=== PATIENT | male | born 1975 | race African-American/Black ===

== ENCOUNTER 2016-04-12 07:33 | Inpatient (IN) | payer BC ==
[~2016-04-12] VITALS: Ht 177.8 cm; Wt 94.5 kg
[~2016-04-12 07:33] MED LIST: ALPRAZOLAM2 MG PO; CIPRO500 MG PO; FLAGYL500 MG PO; FLEXERIL5 MG PO; LIDOCAINE700 MG TD; MOBIC7.5 MG PO; MORPHINE SULFAT30 M1 PO; NICOTINE PATCH1 EAC2 TD; PERCOCET 10/1 TABLET PO; PHARMACIST FAV1 EACH PO
[2016-04-12 09:06] LABS: BASOPHIL COUNT 0.1 K/uL (0-0.1); EOSINOPHIL (%) 9.7 % (0-5); EOSINOPHIL COUNT 0.5 K/uL (0-0.3); HEMATOCRIT 48.8 % (38.0-50.0); IMMATURE GRANULOCYTE (%) 0.2 % (0.0-0.7); IMMATURE GRANULOCYTE COUNT 0.1 K/uL; LYMPHOCYTE COUNT 1.6 K/uL (1.0-2.8); MCH 29.3 PG (29.0-34.0); MCHC 33.8 G/DL (30.0-36.0); MCV 86.5 FL (86-99); MEAN PLAT.VOLUME 8.3 uM^3 (9.0-12.4); MONOCYTE (%) 10.7 % (3-12); MONOCYTE COUNT 0.5 K/uL (0-0.8); NEUTROPHIL COUNT 2.2 K/uL (1.8-6.4); PLATELET COUNT 188 K/uL (156-360); RBC DIS.WIDTH-CV 12.8 % (11.8-14.6); RBC DIS.WIDTH-SD 40.4 % (39-53); RED BLOOD COUNT 5.64 M/uL (4.00-5.50); WHITE BLOOD COUNT 4.9 K/uL (4.1-10.2)
[2016-04-12 09:18] LABS: CHLORIDE 105 mEq/L (99-109); POTASSIUM 4.3 mEq/L (3.7-5.4); SODIUM 140 mEq/L (136-147)
[2016-04-12 09:19] LABS: GLUCOSE 94 mg/dL (70-99)
[2016-04-12 09:21] LABS: ANION GAP 7 MEQ/L (2-14)
[2016-04-12 09:23] LABS: GFR ESTIMATE (CALCULATED) > 59 mL/min/
[2016-04-12 09:25] LABS: UREA NITROGEN (BUN) 16 mg/dL (9-23)
[2016-04-12] MEDS ORDERED: ATENOLOL25 MG PO (15:44)
[2016-04-12] MEDS ORDERED: CIALIS20 MG PO (15:44)
[2016-04-12] MEDS ORDERED: OXYCODONE HCL5 MG PO (15:44)
[2016-04-12] MEDS ORDERED: NEXIUM40 MG PO (15:44)
[2016-04-12] MEDS ORDERED: OXYCONTIN20 MG PO (15:44)
[2016-04-12] MEDS ORDERED: CLINDAMYCIN HC300 MG PO (15:45)
[2016-04-12] MEDS ORDERED: TRAMADOL HCL50 MG PO (15:45)
[2016-04-12 20:00] VITALS: BP 123/76
[2016-04-12 21:20] VITALS: BP 127/74
[2016-04-13] VITALS (9 sets, daily range): BP systolic 107–157; BP diastolic 50–96
[2016-04-13 07:17] LABS: HEMATOCRIT 47.3 % (38.0-50.0); MCH 29.8 PG (29.0-34.0); MCV 87.6 FL (86-99); MEAN PLAT.VOLUME 9.5 uM^3 (9.0-12.4); PLATELET COUNT 168 K/uL (156-360); RBC DIS.WIDTH-CV 12.9 % (11.8-14.6); RBC DIS.WIDTH-SD 41.1 % (39-53); WHITE BLOOD COUNT 4.9 K/uL (4.1-10.2)
[2016-04-13 07:51] LABS: ALKALINE PHOSPHATASE 52 IU/L (3-129); ANION GAP 7 MEQ/L (2-14); CHLORIDE 106 MEQ/L (99-109); GFR ESTIMATE (CALCULATED) > 59 mL/min/; GLUCOSE 83 mg/dL (70-99); POTASSIUM 4.6 MEQ/L (3.7-5.4); SAMPLE HEMOLYSIS CHECK 0; SAMPLE ICTERIC CHECK 0; SAMPLE LIPEMIA CHECK 0; SODIUM 139 MEQ/L (136-147); TOTAL BILIRUBIN 0.3 MG/DL (0.0-1.0); UREA NITROGEN (BUN) 19 mg/dL (9-23)
[2016-04-13] MEDS ORDERED: ALPRAZOLAM2 MG PO (19:04)
[2016-04-14 03:31] VITALS: BP 108/53
[2016-04-14 08:07] VITALS: BP 153/86
[2016-04-14 11:35] VITALS: BP 143/66
[2016-04-14 15:44] VITALS: BP 140/83
[2016-04-14] MEDS ORDERED: HIBICLENS118 ML TP (15:56)
[2016-04-14] MEDS ORDERED: KEFLEX500 MG PO (15:57)
== END 2016-04-14 16:55 | disposition home or self-care (01) | DRG 603 ==
LOC: EME 07:33 → 2EASTP 20:18 → EDOF 20:18 → 2EASTP 04-13 08:09
PROVIDERS: Internal Medicine; Physician Assistant
PROC: 0HCFXZZ Extirpation of Matter from Right Hand Skin, External Approach (ICD-10-PCS; principal; 2016-04-12)
DX: L03.011 Cellulitis of right finger (principal); M65.9 Synovitis and tenosynovitis, unspecified; I10 Essential (primary) hypertension; B95.61 Methicillin susceptible Staphylococcus aureus infection as the cause of diseases classified elsewhere; M79.641 Pain in right hand; N52.9 Male erectile dysfunction, unspecified; K21.9 Gastro-esophageal reflux disease without esophagitis; F41.9 Anxiety disorder, unspecified; G89.29 Other chronic pain; M54.9 Dorsalgia, unspecified; E11.9 Type 2 diabetes mellitus without complications; Z87.891 Personal history of nicotine dependence; Z88.0 Allergy status to penicillin
CPT/HCPCS: 73140; 76882; 80048; 80053; 80202; 85025; 85027; 99281; 99284; J0690; J1170; J3010; J3370; J7030; S0020

== ENCOUNTER 2016-06-03 17:55 | Emergency (ER) | payer OTHER, BC ==
[~2016-06-03] VITALS: Ht 180.3 cm; Wt 100.9 kg
[~2016-06-03 17:55] MED LIST changes: +ATENOLOL25 MG PO; +CIALIS20 MG PO; +CLINDAMYCIN HC300 MG PO; +HIBICLENS118 ML TP; +KEFLEX500 MG PO; +NEXIUM40 MG PO; +OXYCODONE HCL5 MG PO; +OXYCONTIN20 MG PO; +TRAMADOL HCL50 MG PO
[2016-06-03 21:38] VITALS: BP 128/68
== END 2016-06-03 21:39 | disposition home or self-care (01) ==
LOC: EME 17:55 → RME 17:55
DX: S16.1XXA Strain of muscle, fascia and tendon at neck level, initial encounter (principal); S23.3XXA Sprain of ligaments of thoracic spine, initial encounter; V49.40XA Driver injured in collision with unspecified motor vehicles in traffic accident, initial encounter; Y92.488 Other paved roadways as the place of occurrence of the external cause; Z88.0 Allergy status to penicillin
CPT/HCPCS: 70450; 72125; 99281; 99284; J1885

== ENCOUNTER 2016-07-06 12:45 | Emergency (ER) | payer OTHER, BC ==
[~2016-07-06] VITALS: Ht 177.8 cm; Wt 102.8 kg
[2016-07-06] MEDS ORDERED: INDOCIN50 MG PO (14:50)
[2016-07-06 16:34] VITALS: BP 150/102
== END 2016-07-06 16:35 | disposition home or self-care (01) ==
LOC: EME 12:45
DX: S83.92XA Sprain of unspecified site of left knee, initial encounter (principal); I10 Essential (primary) hypertension; Z88.0 Allergy status to penicillin
CPT/HCPCS: 73564; 99281; 99283